=== PATIENT | male | born 1995 | race Caucasian/White ===

== ENCOUNTER 2023-09-10 13:18 | Emergency (ER) | payer SELFPAY ==
[~2023-09-10] VITALS: Ht 177.8 cm; Wt 64.0 kg
[2023-09-10] MEDS: ONDANSETRON HCL 4MG/2ML INJ IV STA (13:21)
[2023-09-10 13:29] VITALS: O2SAT 100
[2023-09-10] MEDS: SODIUM CHLORIDE 0.9% 1,000 ML IV ONE (13:30)
[2023-09-10 14:43] LABS: BASOPHILS % 0.2 % (0.0-2.0); EOSINOPHILS % 0.1 % (0.0-5.0); HEMATOCRIT. 42.6 % (42.0-52.0); HEMOGLOBIN. 14.6 g/dL (14.0-18.0); LYMPHOCYTES % 9.2 % (20.0-50.0); MEAN CORPUSCULAR HEMOGLOBIN 29.1 pg (28.0-32.0); MEAN CORPUSCULAR HGB CONC 34.3 g/dL (31.0-37.0); MEAN CORPUSCULAR VOLUME 84.6 fL (80.0-94.0); MEAN PLATELET VOLUME 7.2 fl (7.4-10.4); MONOCYTES % 3.7 % (2.0-8.0); NEUTROPHILS % 86.8 % (40.0-76.0); PLATELET 254 x1000/uL (130-400); RED BLOOD CELL COUNT 5.03 mill/uL (4.7-6.1); RED CELL DISTRIBUTION WIDTH 12.9 % (11.6-14.6); WHITE BLOOD COUNT 13.1 x1000/uL (4.5-11.0)
[2023-09-10 14:49] LABS: CHLORIDE 106 mEq/L (98-107); POTASSIUM 4.4 mEq/L (3.5-5.1); SODIUM 140 mEq/L (136-145)
[2023-09-10 14:50] LABS: CARBON DIOXIDE 27 mEq/L (21-32)
[2023-09-10 14:55] LABS: GLUCOSE 104 mg/dL (70-105)
[2023-09-10 14:56] LABS: UREA NITROGEN BLOOD 17 mg/dL (9-23)
[2023-09-10 14:57] LABS: ACETAMINOPHEN < 2 ug/mL (10-30); ALANINE AMINOTRANSFERASE 20 IU/L (10-49); ASPARTATE AMINOTRANSFERASE 26 IU/L (<34); BILIRUBIN DIRECT 0.2 mg/dL (<=3.0)
[2023-09-10 14:58] LABS: BILIRUBIN TOTAL 0.6 mg/dL (0.1-1.0); PROTEIN TOTAL 7.8 g/dL (6.0-8.3)
[2023-09-10 14:59] LABS: ETHANOL BLOOD < 10 mg/dL (<10)
[2023-09-10] MEDS: KETOROLAC 15MG/ML VIAL IV ONE (17:30)
[2023-09-10 18:43] VITALS: BP 126/70; PULSE 78; RESP 12; TEMP 98.4
[2023-09-10] MEDS: CLONIDINE 0.1MG TABLET PO ONE (18:45)
== END 2023-09-10 18:49 | disposition home or self-care (01) ==
LOC: ER 13:18
DX: F11.23 Opioid dependence with withdrawal (principal)
CPT/HCPCS: 80076; 80048; 80307; 80329; 80320; 83690; 85025; 36415; 71045; 96361; 96374; 99284; J2405; J7030; Z7610 ×2; G0480